=== PATIENT | female | born 1980 | race Asian ===

== ENCOUNTER 2019-02-24 07:19 | Day surgery (SDC) | payer OTHER ==
[~2019-02-24] VITALS: Ht 154.9 cm; Wt 76.7 kg
[2019-02-24] MEDS ORDERED: loratadine (08:10)
[2019-02-24] MEDS ORDERED: [UNRECOGNIZED DRUG - OTHER] (08:10)
[2019-02-24 08:28] VITALS: BP 129/75; PULSE 84; RESP 16
[2019-02-24 08:29] VITALS: Ht 154.9 cm; Wt 76.7 kg
[2019-02-24] MEDS ORDERED: LIDOCAINE 4% SOLUTION 50 ML BTL ONE (08:48)
[2019-02-24] MEDS ORDERED: MIDAZOLAM 1 MG/ML 2 ML INJ ONE ×2 (09:24)
[2019-02-24] MEDS ORDERED: FENTAnyl 50 MCG/ML VIAL ONE (09:24)
[2019-02-24 09:35] VITALS: BP 118/65; PULSE 55; RESP 18
== END 2019-02-24 12:12 | disposition home or self-care (01) ==
LOC: GIL 07:19
PROVIDERS: ATTEND Internal Medicine Gastroenterology
DX: R10.10 Upper abdominal pain, unspecified (principal); K20.8 Other esophagitis; K29.00 Acute gastritis without bleeding
CPT/HCPCS: 43239; 88305; 88312; J2250; J3010; Z7610